=== PATIENT | male | born 1955 | race Caucasian/White ===

== ENCOUNTER 2017-08-04 12:26 | Emergency (ER) | payer MEDICARE, OTHER ==
[2017-08-04 15:33] LABS: ADD MAN DIFF? NO
[2017-08-04 15:34] LABS: HEMATOCRIT 33.6 % (42.0-52.0); HEMOGLOBIN 11.3 g/dl (14.0-18.0); MEAN CORPUSCULAR HEMOGLOBIN 32.6 pg (29.0-33.0); MEAN CORPUSCULAR HGB CONC 33.6 g/dl (32.0-37.0); MEAN CORPUSCULAR VOLUME 96.8 fl (82.0-101.0); PLATELET COUNT 185 10^3/UL (140-415); RED BLOOD COUNT 3.47 10^6/ul (4.70-6.10); RED CELL DISTRIBUTION WIDTH 12.9 % (11.5-14.5)
[2017-08-04 15:34] LABS: WHITE BLOOD COUNT 7.2 10^3/ul (4.8-10.8)
[2017-08-04 15:35] LABS: BASOPHILS % 0.6 % (0.0-2.0); EOSINOPHILS # 0.2 10^3/ul (0.0-0.5); EOSINOPHILS % 2.4 % (0.0-7.0); LYMPHOCYTES # 1.3 10^3/ul (0.8-2.9); LYMPHOCYTES % 18.5 % (15.0-51.0); MEAN PLATELET VOLUME 9.7 fl (7.4-10.4); MONOCYTE # 0.8 10^3/ul (0.3-0.9); MONOCYTES % 10.7 % (0.0-11.0); NEUTROPHIL # 4.8 10^3/ul (1.6-7.5); NEUTROPHILS % 67.2 % (39.0-77.0)
[2017-08-04 16:07] LABS: ALANINE AMINOTRANSFERASE 31 IU/L (13-69); ALBUMIN 4.8 g/dl (3.3-4.9); ALKALINE PHOSPHATASE 118 IU/L (42-121); ANION GAP 25 (8-16); ASPARTATE AMINO TRANSFERASE 32 IU/L (15-46); BILIRUBIN,INDIRECT 0.1 mg/dl (0-1.1); BILIRUBIN,TOTAL 0.1 mg/dl (0.2-1.3); BLOOD UREA NITROGEN 33 mg/dl (7-20); CALCIUM 9.6 mg/dl (8.4-10.2); CARBON DIOXIDE 31 mmol/L (21-31); CHLORIDE 94 mmol/L (97-110); CREATININE 5.92 mg/dl (0.61-1.24); GLUCOSE 117 mg/dl (70-220); LIPASE 64 U/L (23-300); POTASSIUM 5.2 mmol/L (3.5-5.1); SODIUM 145 mmol/L (135-144); TOTAL PROTEIN 8.8 g/dl (6.1-8.1)
== END 2017-08-04 20:18 | disposition home or self-care (01) ==
LOC: E/R 12:26
DX: R53.82 Chronic fatigue, unspecified (principal); E11.9 Type 2 diabetes mellitus without complications; I25.10 Atherosclerotic heart disease of native coronary artery without angina pectoris; N18.6 End stage renal disease; I12.0 Hypertensive chronic kidney disease with stage 5 chronic kidney disease or end stage renal disease; Z95.1 Presence of aortocoronary bypass graft; Z99.2 Dependence on renal dialysis; Z79.84 Long term (current) use of oral hypoglycemic drugs; Z79.82 Long term (current) use of aspirin
CPT/HCPCS: 36415; 71045; 80053; 83690; 85025; 87040; 93005; 99285-25

== ENCOUNTER 2018-01-26 00:32 | Emergency (ER) | payer MEDICARE, OTHER ==
[2018-01-26] MEDS: CIPROFLOXACIN 250 MG TAB PO (04:30)
== END 2018-01-26 05:17 | disposition home or self-care (01) ==
LOC: FTE 05:17
DX: N39.41 Urge incontinence (principal); I12.0 Hypertensive chronic kidney disease with stage 5 chronic kidney disease or end stage renal disease; N18.6 End stage renal disease; E11.22 Type 2 diabetes mellitus with diabetic chronic kidney disease; I25.10 Atherosclerotic heart disease of native coronary artery without angina pectoris; Z79.82 Long term (current) use of aspirin; Z79.84 Long term (current) use of oral hypoglycemic drugs; Z99.2 Dependence on renal dialysis; Z95.1 Presence of aortocoronary bypass graft
CPT/HCPCS: 51702; 99283-25

== ENCOUNTER 2018-02-15 15:34 | Inpatient (IN) | payer MEDICARE, OTHER ==
[2018-02-15] MEDS: LORAZEPAM 0.5 MG TAB PO (17:28)
[2018-02-15 17:42] LABS: ADD MAN DIFF? NO
[2018-02-15 17:43] LABS: WHITE BLOOD COUNT 9.2 10^3/ul (4.8-10.8)
[2018-02-15 17:43] LABS: BASOPHILS % 0.3 % (0.0-2.0); EOSINOPHILS # 0.1 10^3/ul (0.0-0.5); HEMATOCRIT 40.5 % (42.0-52.0); HEMOGLOBIN 13.3 g/dl (14.0-18.0); LYMPHOCYTES # 1.1 10^3/ul (0.8-2.9); LYMPHOCYTES % 11.7 % (15.0-51.0); MEAN CORPUSCULAR HEMOGLOBIN 31.4 pg (29.0-33.0); MEAN CORPUSCULAR HGB CONC 32.8 g/dl (32.0-37.0); MEAN CORPUSCULAR VOLUME 95.5 fl (82.0-101.0); MEAN PLATELET VOLUME 9.9 fl (7.4-10.4); MONOCYTE # 0.9 10^3/ul (0.3-0.9); MONOCYTES % 9.4 % (0.0-11.0); NEUTROPHILS % 76.8 % (39.0-77.0); PLATELET COUNT 186 10^3/UL (140-415); RED BLOOD COUNT 4.24 10^6/ul (4.70-6.10); RED CELL DISTRIBUTION WIDTH 14.7 % (11.5-14.5)
[2018-02-15 18:07] LABS: ALANINE AMINOTRANSFERASE 33 IU/L (13-69); ALBUMIN 4.8 g/dl (3.3-4.9); ALBUMIN/GLOBULIN RATIO 1.17; ALKALINE PHOSPHATASE 142 IU/L (42-121); ANION GAP 20 (8-16); ASPARTATE AMINO TRANSFERASE 24 IU/L (15-46); BILIRUBIN,INDIRECT 0.1 mg/dl (0-1.1); BILIRUBIN,TOTAL 0.1 mg/dl (0.2-1.3); BLOOD UREA NITROGEN 46 mg/dl (7-20); CALCIUM 9.2 mg/dl (8.4-10.2); CARBON DIOXIDE 33 mmol/L (21-31); CHLORIDE 94 mmol/L (97-110); CREATININE 6.99 mg/dl (0.61-1.24); GLUCOSE 242 mg/dl (70-220); LIPASE 105 U/L (23-300); SODIUM 140 mmol/L (135-144); TOTAL PROTEIN 8.9 g/dl (6.1-8.1)
[2018-02-15 18:28] LABS: POTASSIUM 6.5 mmol/L (3.5-5.1); TROPONIN-I 0.161 ng/ml (0.000-0.120)
[2018-02-15] MEDS: SOD CHLORIDE 0.9% 500 ML IV (18:34)
[2018-02-15] MEDS ORDERED: DEXTROSE 50% 50 ML SYRINGE IV (19:00)
[2018-02-15] MEDS: INSULIN REGULAR, HUMAN 100 UNIT/1 ML 3ML VIAL IVP (19:11)
[2018-02-16] MEDS ORDERED: ACETAMINOPHEN 325 MG TAB PO (00:30)
[2018-02-16] MEDS ORDERED: LORAZEPAM 1 MG TAB PO (00:30)
[2018-02-16] MEDS ORDERED: ALBUTEROL/IPRATROPIUM (NEB) 3 ML AMP HHN (00:30)
[2018-02-16] MEDS ORDERED: HYDROCODONE/APAP (5/325) TAB PO (00:30)
[2018-02-16] MEDS ORDERED: NACL 0.9% 3 ML SYG IV (00:30)
[2018-02-16] MEDS ORDERED: NITROGLYCERIN (SL) 0.4 MG TAB SL (00:30)
[2018-02-16] MEDS ORDERED: ONDANSETRON 4 MG INJ IV (00:30)
[2018-02-16] MEDS: HEPARIN 5,000 UNIT/0.5 ML VIAL SC ×3 (01:18→20:55)
[2018-02-16] MEDS: ALPRAZOLAM 0.25 MG TAB PO (01:18)
[2018-02-16] MEDS: NA POLYST SULFON 15 GM/60 ML BTL PO (01:19)
[2018-02-16] MEDS: INSULIN ASPART [NOVOLOG] 3 ML PEN SC ×7 (01:33→21:12)
[2018-02-16] MEDS ORDERED: ACCU-CHEK XX (02:00)
[2018-02-16 02:53] LABS: CREATINE KINASE 43 IU/L (23-200)
[2018-02-16 03:06] LABS: POTASSIUM 5.7 mmol/L (3.5-5.1)
[2018-02-16 03:22] LABS: CK INDEX 2.3
[2018-02-16 03:23] LABS: TROPONIN-I 0.166 ng/ml (0.000-0.120)
[2018-02-16 06:29] LABS: ADD MAN DIFF? NO
[2018-02-16 06:31] LABS: WHITE BLOOD COUNT 6.8 10^3/ul (4.8-10.8)
[2018-02-16 06:31] LABS: BASOPHILS % 0.6 % (0.0-2.0); EOSINOPHILS # 0.1 10^3/ul (0.0-0.5); EOSINOPHILS % 2.1 % (0.0-7.0); HEMATOCRIT 39.4 % (42.0-52.0); HEMOGLOBIN 12.9 g/dl (14.0-18.0); LYMPHOCYTES # 1.3 10^3/ul (0.8-2.9); LYMPHOCYTES % 19.1 % (15.0-51.0); MEAN CORPUSCULAR HEMOGLOBIN 31.8 pg (29.0-33.0); MEAN CORPUSCULAR HGB CONC 32.7 g/dl (32.0-37.0); MEAN PLATELET VOLUME 10.1 fl (7.4-10.4); MONOCYTE # 0.8 10^3/ul (0.3-0.9); MONOCYTES % 11.7 % (0.0-11.0); NEUTROPHIL # 4.5 10^3/ul (1.6-7.5); NEUTROPHILS % 65.5 % (39.0-77.0); PLATELET COUNT 176 10^3/UL (140-415); RED BLOOD COUNT 4.06 10^6/ul (4.70-6.10); RED CELL DISTRIBUTION WIDTH 14.6 % (11.5-14.5)
[2018-02-16 07:02] LABS: ALANINE AMINOTRANSFERASE 32 IU/L (13-69); ALBUMIN 4.3 g/dl (3.3-4.9); ALBUMIN/GLOBULIN RATIO 1.16; ALKALINE PHOSPHATASE 118 IU/L (42-121); ANION GAP 20 (8-16); ASPARTATE AMINO TRANSFERASE 18 IU/L (15-46); BILIRUBIN,INDIRECT 0.1 mg/dl (0-1.1); BILIRUBIN,TOTAL 0.1 mg/dl (0.2-1.3); BLOOD UREA NITROGEN 59 mg/dl (7-20); CALCIUM 8.7 mg/dl (8.4-10.2); CARBON DIOXIDE 31 mmol/L (21-31); CHLORIDE 99 mmol/L (97-110); CHOL/HDL RATIO 3.4 RATIO; CHOLESTEROL 164 mg/dl (100-200); CREATININE 8.27 mg/dl (0.61-1.24); GLUCOSE 97 mg/dl (70-220); HDL CHOLESTEROL 47 mg/dl (30-78); LDL CHOLESTEROL,CALCULATED 87 mg/dl; MAGNESIUM 2.7 mg/dl (1.7-2.5); POTASSIUM 5.6 mmol/L (3.5-5.1); SODIUM 144 mmol/L (135-144); TRIGLYCERIDES 148 mg/dl (0-149)
[2018-02-16 07:26] LABS: THYROID STIMULATING HORMONE 0.689 MIU/L (0.465-4.680)
[2018-02-16] MEDS ORDERED: SEVELAMER 800 MG TAB PO (07:55)
[2018-02-16 08:11] LABS: HEMOGLOBIN A1C 7.8 % (0-5.9)
[2018-02-16] MEDS: INSULIN DETEMIR [LEVEMIR] (100 UNITS/ML) SYG SC (08:20)
[2018-02-16] MEDS: FLUTICASONE 0.05% 16 GM NAS SPRAY NASAL ×2 (08:32→20:35)
[2018-02-16] MEDS: FERROUS SULFATE (EC) 325 MG TAB PO (08:32)
[2018-02-16] MEDS: SEVELAMER CARBONATE 800 MG TABLET PO ×3 (08:32→17:43)
[2018-02-16] MEDS: LOSARTAN 25 MG TAB PO (08:32)
[2018-02-16] MEDS: SERTRALINE 50 MG TAB PO (08:33)
[2018-02-16] MEDS: ASPIRIN (EC) 81 MG TAB PO (08:33)
[2018-02-16] MEDS: MULTIVIT/CA CARB/B CMPLX/FA TAB PO (08:33)
[2018-02-16 09:13] LABS: CREATINE KINASE 43 IU/L (23-200)
[2018-02-16 09:26] LABS: CK INDEX 2.2; CK-MB 0.96 ng/ml (0.0-2.4)
[2018-02-16 09:27] LABS: TROPONIN-I 0.173 ng/ml (0.000-0.120)
[2018-02-16] MEDS ORDERED: GLUCOSE GEL 15 GRAM TUBE PO ×2 (13:00)
[2018-02-16] MEDS ORDERED: GLUCOSE GEL 15 GRAM TUBE BUCCAL (13:00)
[2018-02-16] MEDS ORDERED: DEXTROSE 50% 50 ML SYRINGE IV ×2 (13:00)
[2018-02-16] MEDS ORDERED: GLUCAGON 1 MG INJ IM (13:00)
[2018-02-16 15:25] LABS: HEPATITIS B SURFACE ANTIGEN NEGATIVE (NEGATIVE)
[2018-02-16] MEDS: ATORVASTATIN 10 MG TAB PO (20:35)
[2018-02-16] MEDS: traZODone 50 MG TAB PO (20:35)
[2018-02-17] MEDS: ACCU-CHEK XX (01:43)
[2018-02-17 06:08] LABS: ADD MAN DIFF? NO
[2018-02-17 06:12] LABS: BASOPHILS % 0.4 % (0.0-2.0); EOSINOPHILS # 0.2 10^3/ul (0.0-0.5); EOSINOPHILS % 2.5 % (0.0-7.0); HEMATOCRIT 37.1 % (42.0-52.0); HEMOGLOBIN 11.9 g/dl (14.0-18.0); LYMPHOCYTES # 0.7 10^3/ul (0.8-2.9); LYMPHOCYTES % 9.3 % (15.0-51.0); MEAN CORPUSCULAR HEMOGLOBIN 31.3 pg (29.0-33.0); MEAN CORPUSCULAR HGB CONC 32.1 g/dl (32.0-37.0); MEAN CORPUSCULAR VOLUME 97.6 fl (82.0-101.0); MEAN PLATELET VOLUME 10.2 fl (7.4-10.4); MONOCYTE # 0.9 10^3/ul (0.3-0.9); MONOCYTES % 11.9 % (0.0-11.0); NEUTROPHIL # 5.5 10^3/ul (1.6-7.5); NEUTROPHILS % 75.4 % (39.0-77.0); PLATELET COUNT 153 10^3/UL (140-415); RED CELL DISTRIBUTION WIDTH 14.6 % (11.5-14.5)
[2018-02-17 06:12] LABS: WHITE BLOOD COUNT 7.3 10^3/ul (4.8-10.8)
[2018-02-17 06:51] LABS: ANION GAP 17 (8-16); BLOOD UREA NITROGEN 38 mg/dl (7-20); CALCIUM 8.6 mg/dl (8.4-10.2); CARBON DIOXIDE 29 mmol/L (21-31); CHLORIDE 102 mmol/L (97-110); CREATININE 5.32 mg/dl (0.61-1.24); GLUCOSE 107 mg/dl (70-220); MAGNESIUM 2.3 mg/dl (1.7-2.5); PHOSPHORUS 6.1 mg/dl (2.5-4.9); POTASSIUM 4.8 mmol/L (3.5-5.1); SODIUM 143 mmol/L (135-144)
[2018-02-17] MEDS: INSULIN ASPART [NOVOLOG] 3 ML PEN SC ×2 (07:55→12:02)
[2018-02-17] MEDS: MULTIVIT/CA CARB/B CMPLX/FA TAB PO (08:14)
[2018-02-17] MEDS: SERTRALINE 50 MG TAB PO (08:14)
[2018-02-17] MEDS: ASPIRIN (EC) 81 MG TAB PO (08:14)
[2018-02-17] MEDS: SEVELAMER CARBONATE 800 MG TABLET PO ×2 (08:14→11:46)
[2018-02-17] MEDS: FERROUS SULFATE (EC) 325 MG TAB PO (08:14)
[2018-02-17] MEDS: LOSARTAN 25 MG TAB PO (08:14)
[2018-02-17] MEDS: FLUTICASONE 0.05% 16 GM NAS SPRAY NASAL (08:15)
[2018-02-17] MEDS: HEPARIN 5,000 UNIT/0.5 ML VIAL SC (08:17)
[2018-02-17] MEDS: INSULIN DETEMIR [LEVEMIR] (100 UNITS/ML) SYG SC (12:02)
== END 2018-02-17 12:35 | disposition home or self-care (01) | DRG 640 ==
LOC: TEL 19:38 → FTE 15:34
DX: E87.8 Other disorders of electrolyte and fluid balance, not elsewhere classified (principal); N18.6 End stage renal disease; I12.0 Hypertensive chronic kidney disease with stage 5 chronic kidney disease or end stage renal disease; E11.22 Type 2 diabetes mellitus with diabetic chronic kidney disease; E78.5 Hyperlipidemia, unspecified; I25.10 Atherosclerotic heart disease of native coronary artery without angina pectoris; E87.5 Hyperkalemia; F41.9 Anxiety disorder, unspecified; D64.9 Anemia, unspecified; R74.8 Abnormal levels of other serum enzymes; R94.31 Abnormal electrocardiogram [ECG] [EKG]; Z87.891 Personal history of nicotine dependence; Z99.2 Dependence on renal dialysis; Z76.82 Awaiting organ transplant status; Z79.84 Long term (current) use of oral hypoglycemic drugs; Z79.82 Long term (current) use of aspirin; Z95.1 Presence of aortocoronary bypass graft
CPT/HCPCS: 36415; 70450; 80048; 80053; 80061; 82550; 82553; 82962; 83036; 83690; 83735; 84100; 84132; 84443; 84484; 85025; 87340; 90935; 93005; 93306; 96374; 99285-25

== ENCOUNTER 2018-04-27 20:46 | Emergency (ER) | payer MEDICARE, OTHER ==
[2018-04-27] MEDS: SOD CHLORIDE 0.9% 1,000 ML IV (22:03)
[2018-04-27 22:27] LABS: ADD MAN DIFF? NO
[2018-04-27 22:29] LABS: BASOPHIL # 0.1 10^3/ul (0.0-0.1); BASOPHILS % 0.5 % (0.0-2.0); EOSINOPHILS # 0.2 10^3/ul (0.0-0.5); EOSINOPHILS % 1.7 % (0.0-7.0); HEMATOCRIT 40.2 % (42.0-52.0); HEMOGLOBIN 13.2 g/dl (14.0-18.0); LYMPHOCYTES # 1.3 10^3/ul (0.8-2.9); LYMPHOCYTES % 13.2 % (15.0-51.0); MEAN CORPUSCULAR HEMOGLOBIN 30.8 pg (29.0-33.0); MEAN CORPUSCULAR HGB CONC 32.8 g/dl (32.0-37.0); MEAN CORPUSCULAR VOLUME 93.9 fl (82.0-101.0); MONOCYTE # 0.8 10^3/ul (0.3-0.9); MONOCYTES % 7.5 % (0.0-11.0); NEUTROPHIL # 7.8 10^3/ul (1.6-7.5); NEUTROPHILS % 76.7 % (39.0-77.0); PLATELET COUNT 185 10^3/UL (140-415); RED BLOOD COUNT 4.28 10^6/ul (4.70-6.10); RED CELL DISTRIBUTION WIDTH 13.5 % (11.5-14.5)
[2018-04-27 22:29] LABS: WHITE BLOOD COUNT 10.2 10^3/ul (4.8-10.8)
[2018-04-27] MEDS: morphine 4 MG/ML VIAL IV (22:34)
[2018-04-27] MEDS: ONDANSETRON 4 MG INJ IV (22:38)
[2018-04-27] MEDS: KETOROLAC 15 MG INJ IV (22:38)
[2018-04-27 22:46] LABS: ALANINE AMINOTRANSFERASE 53 IU/L (13-69); ALBUMIN 4.4 g/dl (3.3-4.9); ALBUMIN/GLOBULIN RATIO 1.02; ALKALINE PHOSPHATASE 120 IU/L (42-121); ANION GAP 22 (8-16); ASPARTATE AMINO TRANSFERASE 36 IU/L (15-46); BILIRUBIN,INDIRECT 0.2 mg/dl (0-1.1); BILIRUBIN,TOTAL 0.2 mg/dl (0.2-1.3); BLOOD UREA NITROGEN 37 mg/dl (7-20); CALCIUM 8.9 mg/dl (8.4-10.2); CARBON DIOXIDE 30 mmol/L (21-31); CHLORIDE 91 mmol/L (97-110); CREATININE 7.03 mg/dl (0.61-1.24); GLUCOSE 233 mg/dl (70-220); LIPASE 115 U/L (23-300); POTASSIUM 4.8 mmol/L (3.5-5.1); SODIUM 138 mmol/L (135-144); TOTAL PROTEIN 8.7 g/dl (6.1-8.1)
== END 2018-04-28 02:48 | disposition home or self-care (01) ==
LOC: E/R 04-28 02:48
DX: N39.0 Urinary tract infection, site not specified (principal); E11.65 Type 2 diabetes mellitus with hyperglycemia; I25.10 Atherosclerotic heart disease of native coronary artery without angina pectoris; E11.9 Type 2 diabetes mellitus without complications; Z79.82 Long term (current) use of aspirin; Z79.84 Long term (current) use of oral hypoglycemic drugs; Z95.1 Presence of aortocoronary bypass graft
CPT/HCPCS: 36415; 76775; 80053; 83690; 85025; 96374; 96375; 99285-25

== ENCOUNTER 2018-05-09 07:27 | Emergency (ER) | payer OTHER, MEDICARE | END 2018-05-09 08:44 | disposition home or self-care (01) | LOC: E/R 07:27 | DX: T82.838A Hemorrhage due to vascular prosthetic devices, implants and grafts, initial encounter (principal); I25.10 Atherosclerotic heart disease of native coronary artery without angina pectoris; E11.9 Type 2 diabetes mellitus without complications; Y79.2 Prosthetic and other implants, materials and accessory orthopedic devices associated with adverse incidents; Z79.82 Long term (current) use of aspirin; Z79.84 Long term (current) use of oral hypoglycemic drugs; Z95.1 Presence of aortocoronary bypass graft | CPT/HCPCS: 99282 ==

== ENCOUNTER 2018-05-19 17:17 | Emergency (ER) | payer OTHER ==
[2018-05-19 18:27] LABS: ADD MAN DIFF? NO
[2018-05-19 18:35] LABS: BASOPHILS % 0.6 % (0.0-2.0); EOSINOPHILS # 0.2 10^3/ul (0.0-0.5); HEMATOCRIT 36.7 % (42.0-52.0); HEMOGLOBIN 12.1 g/dl (14.0-18.0); LYMPHOCYTES # 1.4 10^3/ul (0.8-2.9); LYMPHOCYTES % 20.7 % (15.0-51.0); MEAN CORPUSCULAR HEMOGLOBIN 31.5 pg (29.0-33.0); MEAN CORPUSCULAR VOLUME 95.6 fl (82.0-101.0); MEAN PLATELET VOLUME 10.1 fl (7.4-10.4); MONOCYTE # 0.9 10^3/ul (0.3-0.9); MONOCYTES % 12.9 % (0.0-11.0); NEUTROPHIL # 4.1 10^3/ul (1.6-7.5); NEUTROPHILS % 62.3 % (39.0-77.0); PLATELET COUNT 150 10^3/UL (140-415); RED BLOOD COUNT 3.84 10^6/ul (4.70-6.10); RED CELL DISTRIBUTION WIDTH 15.1 % (11.5-14.5)
[2018-05-19 18:35] LABS: WHITE BLOOD COUNT 6.6 10^3/ul (4.8-10.8)
[2018-05-19] MEDS: HYDROCODONE/APAP (5/325) TAB PO (18:37)
[2018-05-19 18:55] LABS: ANION GAP 17 (5-13); BLOOD UREA NITROGEN 65 mg/dl (7-20); CALCIUM 8.1 mg/dl (8.4-10.2); CARBON DIOXIDE 27 mmol/L (21-31); CHLORIDE 93 mmol/L (97-110); CREATININE 9.14 mg/dl (0.61-1.24); GLUCOSE 178 mg/dl (70-220); POTASSIUM 5.8 mmol/L (3.5-5.1); SODIUM 137 mmol/L (135-144)
== END 2018-05-19 20:25 | disposition home or self-care (01) ==
LOC: E/R 17:17
DX: T81.41XA Infection following a procedure, superficial incisional surgical site, initial encounter (principal); R40.2142 Coma scale, eyes open, spontaneous, at arrival to emergency department; R40.2362 Coma scale, best motor response, obeys commands, at arrival to emergency department; R40.2252 Coma scale, best verbal response, oriented, at arrival to emergency department; I25.10 Atherosclerotic heart disease of native coronary artery without angina pectoris; I10 Essential (primary) hypertension; Y65.8 Other specified misadventures during surgical and medical care; Z95.1 Presence of aortocoronary bypass graft; Z87.891 Personal history of nicotine dependence; Z79.82 Long term (current) use of aspirin; Z79.84 Long term (current) use of oral hypoglycemic drugs
CPT/HCPCS: 36415; 80048; 85025; 93931; 99284-25

== ENCOUNTER 2018-07-28 07:09 | Inpatient (IN) | payer OTHER ==
[2018-07-28 07:47] LABS: ADD MAN DIFF? NO
[2018-07-28 07:49] LABS: BASOPHILS % 0.5 % (0.0-2.0); EOSINOPHILS # 0.2 10^3/ul (0.0-0.5); EOSINOPHILS % 2.1 % (0.0-7.0); HEMATOCRIT 40.8 % (42.0-52.0); HEMOGLOBIN 13.1 g/dl (14.0-18.0); LYMPHOCYTES # 1.3 10^3/ul (0.8-2.9); LYMPHOCYTES % 15.6 % (15.0-51.0); MEAN CORPUSCULAR HEMOGLOBIN 30.9 pg (29.0-33.0); MEAN CORPUSCULAR HGB CONC 32.1 g/dl (32.0-37.0); MEAN CORPUSCULAR VOLUME 96.2 fl (82.0-101.0); MEAN PLATELET VOLUME 9.7 fl (7.4-10.4); MONOCYTE # 0.7 10^3/ul (0.3-0.9); MONOCYTES % 8.9 % (0.0-11.0); NEUTROPHILS % 72.4 % (39.0-77.0); PLATELET COUNT 146 10^3/UL (140-415); RED BLOOD COUNT 4.24 10^6/ul (4.70-6.10); RED CELL DISTRIBUTION WIDTH 14.2 % (11.5-14.5)
[2018-07-28 07:49] LABS: WHITE BLOOD COUNT 8.2 10^3/ul (4.8-10.8)
[2018-07-28 08:05] LABS: ALANINE AMINOTRANSFERASE 27 IU/L (13-69); ALBUMIN 4.5 g/dl (3.3-4.9); ALBUMIN/GLOBULIN RATIO 1.09; ALKALINE PHOSPHATASE 164 IU/L (42-121); ANION GAP 14 (5-13); ASPARTATE AMINO TRANSFERASE 19 IU/L (15-46); BLOOD UREA NITROGEN 41 mg/dl (7-20); CALCIUM 8.5 mg/dl (8.4-10.2); CARBON DIOXIDE 32 mmol/L (21-31); CHLORIDE 95 mmol/L (97-110); CREATININE 8.27 mg/dl (0.61-1.24); Estimated GFR 7 mL/min (>60); GLUCOSE 222 mg/dl (70-220); LIPASE 100 U/L (23-300); SODIUM 141 mmol/L (135-144); TOTAL PROTEIN 8.6 g/dl (6.1-8.1)
[2018-07-28 08:08] LABS: PROTIME 13.3 Sec (11.9-14.9)
[2018-07-28 08:09] LABS: PARTIAL THROMBOPLASTIN TIME 30.1 Sec (23.0-35.0)
[2018-07-28 08:15] LABS: POTASSIUM 6.5 mmol/L (3.5-5.1)
[2018-07-28 08:17] LABS: TROPONIN-I 0.028 ng/ml (0.000-0.120)
[2018-07-28] MEDS: NA POLYST SULFON 15 GM/60 ML BTL PO (08:24)
[2018-07-28] MEDS ORDERED: ONDANSETRON 4 MG INJ IV ×2 (08:30→10:00)
[2018-07-28] MEDS ORDERED: ACETAMINOPHEN 325 MG TAB PO (08:30)
[2018-07-28] MEDS: CALCIUM GLUCONATE 10% 1 GM in DEXTROSE 5% 100 ML IVPB (08:53)
[2018-07-28] MEDS ORDERED: NACL 0.9% 3 ML SYG IV (10:00)
[2018-07-28] MEDS ORDERED: ALPRAZOLAM 0.25 MG TAB PO (10:00)
[2018-07-28] MEDS ORDERED: GLUCOSE GEL 15 GRAM TUBE PO ×2 (10:30)
[2018-07-28] MEDS ORDERED: GLUCAGON 1 MG INJ IM (10:30)
[2018-07-28] MEDS ORDERED: DEXTROSE 50% 50 ML SYRINGE IV ×2 (10:30)
[2018-07-28] MEDS ORDERED: GLUCOSE GEL 15 GRAM TUBE BUCCAL (10:30)
[2018-07-28 11:09] LABS: HEMOGLOBIN A1C 7.3 % (0-5.9)
[2018-07-28] MEDS: SEVELAMER 800 MG TAB PO (11:50)
[2018-07-28] MEDS: INSULIN ASPART [NOVOLOG] 3 ML PEN SC ×5 (11:50→22:07)
[2018-07-28] MEDS ORDERED: hydrALAzine 20 MG INJ IV (12:00)
[2018-07-28 13:37] LABS: HEPATITIS B SURFACE ANTIGEN NEGATIVE (NEGATIVE)
[2018-07-28 14:35] LABS: HEPATITIS B SURFACE ANTIBODY POSITIVE (NEGATIVE)
[2018-07-28 14:49] LABS: CREATINE KINASE 52 IU/L (23-200)
[2018-07-28 15:03] LABS: CK INDEX 1.7; CK-MB 0.87 ng/ml (0.0-2.4); TROPONIN-I 0.026 ng/ml (0.000-0.120)
[2018-07-28] MEDS: HEPARIN 5,000 UNIT/1 ML VIAL SC ×2 (16:18→22:06)
[2018-07-28] MEDS: SEVELAMER CARBONATE 800 MG TABLET PO (17:24)
[2018-07-28] MEDS: LORAZEPAM 4 MG/ML VIAL IV (17:26)
[2018-07-28] MEDS: FLUTICASONE 0.05% 16 GM NAS SPRAY NASAL (21:00)
[2018-07-28] MEDS: traZODone 50 MG TAB PO (21:43)
[2018-07-28] MEDS: ATORVASTATIN 10 MG TAB PO (21:43)
[2018-07-28] MEDS: INSULIN GLARGINE [LANTus] (100 UNITS/ML) SYG SC (21:56)
[2018-07-29] MEDS: HEPARIN 5,000 UNIT/1 ML VIAL SC ×3 (05:41→21:23)
[2018-07-29 06:38] LABS: ADD MAN DIFF? NO
[2018-07-29 06:40] LABS: BASOPHIL # 0.1 10^3/ul (0.0-0.1); BASOPHILS % 0.9 % (0.0-2.0); EOSINOPHILS # 0.2 10^3/ul (0.0-0.5); EOSINOPHILS % 2.7 % (0.0-7.0); HEMATOCRIT 37.3 % (42.0-52.0); LYMPHOCYTES # 1.5 10^3/ul (0.8-2.9); LYMPHOCYTES % 21.7 % (15.0-51.0); MEAN CORPUSCULAR HEMOGLOBIN 30.8 pg (29.0-33.0); MEAN CORPUSCULAR HGB CONC 32.2 g/dl (32.0-37.0); MEAN CORPUSCULAR VOLUME 95.9 fl (82.0-101.0); MEAN PLATELET VOLUME 10.2 fl (7.4-10.4); MONOCYTE # 0.9 10^3/ul (0.3-0.9); MONOCYTES % 13.6 % (0.0-11.0); NEUTROPHIL # 4.1 10^3/ul (1.6-7.5); NEUTROPHILS % 60.7 % (39.0-77.0); PLATELET COUNT 149 10^3/UL (140-415); RED BLOOD COUNT 3.89 10^6/ul (4.70-6.10); RED CELL DISTRIBUTION WIDTH 14.6 % (11.5-14.5)
[2018-07-29 06:40] LABS: WHITE BLOOD COUNT 6.7 10^3/ul (4.8-10.8)
[2018-07-29 07:12] LABS: ALANINE AMINOTRANSFERASE 34 IU/L (13-69); ALBUMIN 4.1 g/dl (3.3-4.9); ALBUMIN/GLOBULIN RATIO 1.24; ALKALINE PHOSPHATASE 140 IU/L (42-121); ANION GAP 16 (5-13); ASPARTATE AMINO TRANSFERASE 27 IU/L (15-46); BILIRUBIN,INDIRECT 0.1 mg/dl (0-1.1); BILIRUBIN,TOTAL 0.1 mg/dl (0.2-1.3); BLOOD UREA NITROGEN 40 mg/dl (7-20); CALCIUM 8.2 mg/dl (8.4-10.2); CARBON DIOXIDE 35 mmol/L (21-31); CHLORIDE 91 mmol/L (97-110); CREATININE 8.17 mg/dl (0.61-1.24); Estimated GFR 7 mL/min (>60); GLUCOSE 82 mg/dl (70-220); POTASSIUM 5.7 mmol/L (3.5-5.1); SODIUM 142 mmol/L (135-144); TOTAL PROTEIN 7.4 g/dl (6.1-8.1)
[2018-07-29 07:26] LABS: CHOL/HDL RATIO 2.8 RATIO; CHOLESTEROL 135 mg/dl (100-200); HDL CHOLESTEROL 48 mg/dl (30-78); LDL CHOLESTEROL,CALCULATED 64 mg/dl; MAGNESIUM 2.5 mg/dl (1.7-2.5); TRIGLYCERIDES 114 mg/dl (0-149)
[2018-07-29 07:26] LABS: PHOSPHORUS 6.6 mg/dl (2.5-4.9)
[2018-07-29] MEDS: INSULIN ASPART [NOVOLOG] 3 ML PEN SC ×7 (07:55→21:00)
[2018-07-29 08:01] LABS: TROPONIN-I 0.047 ng/ml (0.000-0.120)
[2018-07-29] MEDS: MULTIVIT/CA CARB/B CMPLX/FA TAB PO (08:18)
[2018-07-29] MEDS: ASPIRIN (EC) 81 MG TAB PO (08:18)
[2018-07-29] MEDS: SEVELAMER CARBONATE 800 MG TABLET PO ×3 (08:18→14:14)
[2018-07-29] MEDS: SERTRALINE 50 MG TAB PO (08:18)
[2018-07-29] MEDS: FERROUS SULFATE (EC) 325 MG TAB PO (08:18)
[2018-07-29] MEDS: FLUTICASONE 0.05% 16 GM NAS SPRAY NASAL ×2 (08:19→21:10)
[2018-07-29 08:20] LABS: THYROID STIMULATING HORMONE 0.789 MIU/L (0.465-4.680)
[2018-07-29] MEDS: LOSARTAN 25 MG TAB PO (08:20)
[2018-07-29] MEDS: ALBUMIN HUMAN 25% 100 ML IV (10:50)
[2018-07-29] MEDS: HEPARIN 1000 UNITS/ML 10 ML INJ CATHETER (12:29)
[2018-07-29] MEDS ORDERED: BARIUM SULF 2% 450 ML BTL (BERRY SMOOTHIE) PO (12:30)
[2018-07-29 13:30] LABS: TROPONIN-I 0.039 ng/ml (0.000-0.120)
[2018-07-29] MEDS: PANTOPRAZOLE (EC) 40 MG TAB PO (14:14)
[2018-07-29] MEDS: IOHEXOL 14.3 MG(I)/ML (ADULT) BTL PO (17:36)
[2018-07-29] MEDS: traZODone 50 MG TAB PO (21:10)
[2018-07-29] MEDS: ATORVASTATIN 10 MG TAB PO (21:10)
[2018-07-29] MEDS: INSULIN GLARGINE [LANTus] (100 UNITS/ML) SYG SC (21:23)
[2018-07-30] MEDS: PANTOPRAZOLE (EC) 40 MG TAB PO (05:44)
[2018-07-30] MEDS: HEPARIN 5,000 UNIT/1 ML VIAL SC ×3 (05:48→21:26)
[2018-07-30 06:01] LABS: ADD MAN DIFF? NO
[2018-07-30 06:05] LABS: BASOPHIL # 0.1 10^3/ul (0.0-0.1); BASOPHILS % 0.7 % (0.0-2.0); EOSINOPHILS # 0.2 10^3/ul (0.0-0.5); HEMATOCRIT 37.2 % (42.0-52.0); HEMOGLOBIN 12.2 g/dl (14.0-18.0); LYMPHOCYTES # 1.6 10^3/ul (0.8-2.9); LYMPHOCYTES % 22.3 % (15.0-51.0); MEAN CORPUSCULAR HGB CONC 32.8 g/dl (32.0-37.0); MEAN CORPUSCULAR VOLUME 94.4 fl (82.0-101.0); MEAN PLATELET VOLUME 9.9 fl (7.4-10.4); MONOCYTE # 0.8 10^3/ul (0.3-0.9); MONOCYTES % 10.6 % (0.0-11.0); NEUTROPHIL # 4.6 10^3/ul (1.6-7.5); NEUTROPHILS % 62.7 % (39.0-77.0); PLATELET COUNT 160 10^3/UL (140-415); RED BLOOD COUNT 3.94 10^6/ul (4.70-6.10)
[2018-07-30 06:05] LABS: WHITE BLOOD COUNT 7.4 10^3/ul (4.8-10.8)
[2018-07-30 06:41] LABS: ANION GAP 17 (5-13); BLOOD UREA NITROGEN 38 mg/dl (7-20); CALCIUM 8.4 mg/dl (8.4-10.2); CARBON DIOXIDE 27 mmol/L (21-31); CHLORIDE 92 mmol/L (97-110); CREATININE 6.48 mg/dl (0.61-1.24); Estimated GFR 9 mL/min (>60); GLUCOSE 131 mg/dl (70-220); MAGNESIUM 2.3 mg/dl (1.7-2.5); PHOSPHORUS 5.7 mg/dl (2.5-4.9); POTASSIUM 5.4 mmol/L (3.5-5.1); SODIUM 136 mmol/L (135-144)
[2018-07-30] MEDS: INSULIN ASPART [NOVOLOG] 3 ML PEN SC ×7 (07:55→21:00)
[2018-07-30] MEDS: ASPIRIN (EC) 81 MG TAB PO (08:51)
[2018-07-30] MEDS: FERROUS SULFATE (EC) 325 MG TAB PO (08:51)
[2018-07-30] MEDS: MULTIVIT/CA CARB/B CMPLX/FA TAB PO (08:51)
[2018-07-30] MEDS: SEVELAMER CARBONATE 800 MG TABLET PO ×3 (08:51→17:19)
[2018-07-30] MEDS: SERTRALINE 50 MG TAB PO (08:51)
[2018-07-30] MEDS: FLUTICASONE 0.05% 16 GM NAS SPRAY NASAL ×2 (08:53→21:19)
[2018-07-30] MEDS: LOSARTAN 25 MG TAB PO (08:53)
[2018-07-30] MEDS ORDERED: ALBUMIN HUMAN 25% 100 ML IV (10:05)
[2018-07-30 13:30] LABS: CARCINOEMBRYONIC ANTIGEN 2.3 ng/ml (0.0-5.0)
[2018-07-30 13:47] LABS: HEPATITIS C VIRAL ANTIBODY REACTIVE (NEGATIVE)
[2018-07-30 13:47] LABS: CANCER ANTIGEN 19-9 < 1.4 U/ml (0.0-37.0)
[2018-07-30] MEDS: HEPARIN 1000 UNITS/ML 10 ML INJ CATHETER (15:30)
[2018-07-30] MEDS: ACETAMINOPHEN 325 MG TAB PO (17:26)
[2018-07-30] MEDS: ATORVASTATIN 10 MG TAB PO (21:17)
[2018-07-30] MEDS: traZODone 50 MG TAB PO (21:18)
[2018-07-30] MEDS: INSULIN GLARGINE [LANTus] (100 UNITS/ML) SYG SC (21:27)
[2018-07-31 05:54] LABS: OCCULT BLOOD STOOL POSITIVE (NEGATIVE)
[2018-07-31] MEDS: PANTOPRAZOLE (EC) 40 MG TAB PO (06:00)
[2018-07-31] MEDS: HEPARIN 5,000 UNIT/1 ML VIAL SC ×3 (06:04→21:48)
[2018-07-31] MEDS: INSULIN ASPART [NOVOLOG] 3 ML PEN SC ×7 (07:55→20:55)
[2018-07-31] MEDS: ASPIRIN (EC) 81 MG TAB PO (08:21)
[2018-07-31] MEDS: SEVELAMER CARBONATE 800 MG TABLET PO ×3 (08:21→17:29)
[2018-07-31] MEDS: FERROUS SULFATE (EC) 325 MG TAB PO (08:21)
[2018-07-31] MEDS: MULTIVIT/CA CARB/B CMPLX/FA TAB PO (08:21)
[2018-07-31] MEDS: SERTRALINE 50 MG TAB PO (08:22)
[2018-07-31] MEDS: LOSARTAN 25 MG TAB PO (08:22)
[2018-07-31] MEDS: FLUTICASONE 0.05% 16 GM NAS SPRAY NASAL ×2 (08:23→20:54)
[2018-07-31 12:11] LABS: MITOCHONDRIAL TB NEGATIVE (NEGATIVE); SMOOTH MUSCLE AB SCREEN POSITIVE (NEGATIVE)
[2018-07-31 12:56] LABS: ANA SCREEN NEGATIVE (NEGATIVE); SMOOTH MUSCLE AB TITER 1:20 titer (<1:20)
[2018-07-31 13:42] LABS: PROSTATE SPECIFIC ANTIGEN 0.1 ng/ml (0.0-4.0)
[2018-07-31 19:46] LABS: PSA, FREE <0.1 ng/mL
[2018-07-31] MEDS: ATORVASTATIN 10 MG TAB PO (20:54)
[2018-07-31] MEDS: traZODone 50 MG TAB PO (20:55)
[2018-07-31] MEDS: INSULIN GLARGINE [LANTus] (100 UNITS/ML) SYG SC (21:18)
[2018-08-01] MEDS: HEPARIN 5,000 UNIT/1 ML VIAL SC ×2 (05:17→13:46)
[2018-08-01] MEDS: PANTOPRAZOLE (EC) 40 MG TAB PO (05:17)
[2018-08-01] MEDS: INSULIN ASPART [NOVOLOG] 3 ML PEN SC ×6 (07:59→17:31)
[2018-08-01] MEDS: SEVELAMER CARBONATE 800 MG TABLET PO ×3 (08:11→17:29)
[2018-08-01] MEDS: SERTRALINE 50 MG TAB PO (08:11)
[2018-08-01] MEDS: FERROUS SULFATE (EC) 325 MG TAB PO (08:11)
[2018-08-01] MEDS: MULTIVIT/CA CARB/B CMPLX/FA TAB PO (08:11)
[2018-08-01] MEDS: ASPIRIN (EC) 81 MG TAB PO (08:11)
[2018-08-01] MEDS: FLUTICASONE 0.05% 16 GM NAS SPRAY NASAL (08:12)
[2018-08-01] MEDS: LOSARTAN 25 MG TAB PO (09:00)
[2018-08-01] MEDS: HEPARIN 1000 UNITS/ML 10 ML INJ CATHETER (17:24)
== END 2018-08-01 18:59 | disposition home or self-care (01) | DRG 640 ==
LOC: E/R 07:09 → PP2 07-31 21:09 → TEL 08:25
PROC: 5A1D70Z Performance of Urinary Filtration, Intermittent, Less than 6 Hours Per Day (ICD-10-PCS; principal; 2018-07-28)
DX: E87.5 Hyperkalemia (principal); N18.6 End stage renal disease; I12.0 Hypertensive chronic kidney disease with stage 5 chronic kidney disease or end stage renal disease; Z99.2 Dependence on renal dialysis; I16.0 Hypertensive urgency; Z95.1 Presence of aortocoronary bypass graft; R14.0 Abdominal distension (gaseous); Z86.73 Personal history of transient ischemic attack (TIA), and cerebral infarction without residual deficits; E11.9 Type 2 diabetes mellitus without complications; Z87.891 Personal history of nicotine dependence; D49.511 Neoplasm of unspecified behavior of right kidney; Z76.82 Awaiting organ transplant status
CPT/HCPCS: 36415; 71045; 74018; 74176; 76705; 80048; 80053; 80061; 82105; 82270; 82378; 82550; 82553; 82962; 83036; 83690; 83735; 84100; 84153; 84154; 84443; 84484; 85025; 85610; 85730; 86038; 86255; 86301; 86706; 86803; 87340; 87522; 90935; 93005; 93306; 99285-25

== ENCOUNTER 2018-09-09 21:33 | Emergency (ER) | payer OTHER ==
[2018-09-10] MEDS: HYDROCODONE/APAP (5/325) TAB PO (01:44)
[2018-09-10 01:59] LABS: ADD MAN DIFF? NO
[2018-09-10 02:00] LABS: BASOPHIL # 0.1 10^3/ul (0.0-0.1); BASOPHILS % 0.7 % (0.0-2.0); EOSINOPHILS # 0.2 10^3/ul (0.0-0.5); EOSINOPHILS % 2.5 % (0.0-7.0); HEMATOCRIT 34.3 % (42.0-52.0); HEMOGLOBIN 11.2 g/dl (14.0-18.0); LYMPHOCYTES # 1.5 10^3/ul (0.8-2.9); LYMPHOCYTES % 20.2 % (15.0-51.0); MEAN CORPUSCULAR HEMOGLOBIN 30.6 pg (29.0-33.0); MEAN CORPUSCULAR HGB CONC 32.7 g/dl (32.0-37.0); MEAN CORPUSCULAR VOLUME 93.7 fl (82.0-101.0); MEAN PLATELET VOLUME 9.5 fl (7.4-10.4); MONOCYTE # 0.8 10^3/ul (0.3-0.9); MONOCYTES % 10.4 % (0.0-11.0); NEUTROPHIL # 4.9 10^3/ul (1.6-7.5); NEUTROPHILS % 65.4 % (39.0-77.0); PLATELET COUNT 168 10^3/UL (140-415); RED BLOOD COUNT 3.66 10^6/ul (4.70-6.10); RED CELL DISTRIBUTION WIDTH 14.2 % (11.5-14.5)
[2018-09-10 02:00] LABS: WHITE BLOOD COUNT 7.5 10^3/ul (4.8-10.8)
[2018-09-10 02:19] LABS: ALANINE AMINOTRANSFERASE 16 IU/L (13-69); ALBUMIN 4.6 g/dl (3.3-4.9); ALBUMIN/GLOBULIN RATIO 1.12; ALKALINE PHOSPHATASE 150 IU/L (42-121); ANION GAP 14 (5-13); ASPARTATE AMINO TRANSFERASE 17 IU/L (15-46); BLOOD UREA NITROGEN 59 mg/dl (7-20); CALCIUM 8.7 mg/dl (8.4-10.2); CARBON DIOXIDE 28 mmol/L (21-31); CHLORIDE 98 mmol/L (97-110); CREATININE 9.35 mg/dl (0.61-1.24); Estimated GFR 6 mL/min (>60); GLUCOSE 286 mg/dl (70-220); POTASSIUM 5.2 mmol/L (3.5-5.1); SODIUM 140 mmol/L (135-144); TOTAL PROTEIN 8.7 g/dl (6.1-8.1)
== END 2018-09-10 02:57 | disposition home or self-care (01) ==
LOC: FTE 21:33
DX: K62.89 Other specified diseases of anus and rectum (principal); I10 Essential (primary) hypertension; Z79.82 Long term (current) use of aspirin; Z79.84 Long term (current) use of oral hypoglycemic drugs; Z99.2 Dependence on renal dialysis
CPT/HCPCS: 80053; 85025; 99284

== ENCOUNTER 2018-09-22 16:42 | Inpatient (IN) | payer OTHER ==
[2018-09-22 18:42] LABS: ADD MAN DIFF? NO
[2018-09-22 18:43] LABS: WHITE BLOOD COUNT 6.9 10^3/ul (4.8-10.8)
[2018-09-22 18:43] LABS: BASOPHILS % 0.4 % (0.0-2.0); EOSINOPHILS # 0.2 10^3/ul (0.0-0.5); EOSINOPHILS % 2.3 % (0.0-7.0); HEMATOCRIT 29.2 % (42.0-52.0); HEMOGLOBIN 9.6 g/dl (14.0-18.0); LYMPHOCYTES # 0.9 10^3/ul (0.8-2.9); LYMPHOCYTES % 13.3 % (15.0-51.0); MEAN CORPUSCULAR HEMOGLOBIN 30.4 pg (29.0-33.0); MEAN CORPUSCULAR HGB CONC 32.9 g/dl (32.0-37.0); MEAN CORPUSCULAR VOLUME 92.4 fl (82.0-101.0); MEAN PLATELET VOLUME 9.6 fl (7.4-10.4); MONOCYTE # 0.9 10^3/ul (0.3-0.9); MONOCYTES % 12.7 % (0.0-11.0); NEUTROPHIL # 4.8 10^3/ul (1.6-7.5); NEUTROPHILS % 70.7 % (39.0-77.0); PLATELET COUNT 196 10^3/UL (140-415); RED BLOOD COUNT 3.16 10^6/ul (4.70-6.10); RED CELL DISTRIBUTION WIDTH 14.7 % (11.5-14.5)
[2018-09-22 19:01] LABS: ALANINE AMINOTRANSFERASE 44 IU/L (13-69); ALBUMIN 4.5 g/dl (3.3-4.9); ALBUMIN/GLOBULIN RATIO 1.15; ALKALINE PHOSPHATASE 176 IU/L (42-121); ANION GAP 19 (5-13); ASPARTATE AMINO TRANSFERASE 25 IU/L (15-46); BLOOD UREA NITROGEN 97 mg/dl (7-20); CALCIUM 9.1 mg/dl (8.4-10.2); CARBON DIOXIDE 22 mmol/L (21-31); CHLORIDE 102 mmol/L (97-110); CREATININE 11.89 mg/dl (0.61-1.24); Estimated GFR 4 mL/min (>60); GLUCOSE 178 mg/dl (70-220); LIPASE 95 U/L (23-300); SODIUM 143 mmol/L (135-144); TOTAL PROTEIN 8.4 g/dl (6.1-8.1)
[2018-09-22 19:13] LABS: POTASSIUM 6.4 mmol/L (3.5-5.1); TROPONIN-I 0.035 ng/ml (0.000-0.120)
[2018-09-22] MEDS ORDERED: DEXTROSE 50% 50 ML SYRINGE IV (19:30)
[2018-09-22] MEDS: ALBUTEROL 0.083% (NEB) 2.5 MG/3 ML AMP HHN (19:35)
[2018-09-22] MEDS: INSULIN REGULAR, HUMAN 100 UNIT/1 ML 3ML VIAL IVP (19:43)
[2018-09-22] MEDS: DEXTROSE 50% 50 ML SYRINGE IV (19:45)
[2018-09-22] MEDS ORDERED: BISACODYL (EC) 5 MG TAB PO (21:30)
[2018-09-22] MEDS ORDERED: DOCUSATE SODIUM 100 MG CAP PO (21:30)
[2018-09-22] MEDS ORDERED: NACL 0.9% 3 ML SYG IV (21:30)
[2018-09-22] MEDS ORDERED: ONDANSETRON 4 MG TAB PO (21:30)
[2018-09-22] MEDS: LORAZEPAM 2 MG INJ IV (22:51)
[2018-09-23] MEDS ORDERED: hydrALAzine 20 MG INJ IV (02:30)
[2018-09-23 06:09] LABS: ADD MAN DIFF? NO
[2018-09-23 06:12] LABS: BASOPHILS % 0.4 % (0.0-2.0); EOSINOPHILS # 0.1 10^3/ul (0.0-0.5); EOSINOPHILS % 1.3 % (0.0-7.0); HEMATOCRIT 27.4 % (42.0-52.0); LYMPHOCYTES # 1.2 10^3/ul (0.8-2.9); LYMPHOCYTES % 15.9 % (15.0-51.0); MEAN CORPUSCULAR HEMOGLOBIN 30.7 pg (29.0-33.0); MEAN CORPUSCULAR HGB CONC 32.8 g/dl (32.0-37.0); MEAN CORPUSCULAR VOLUME 93.5 fl (82.0-101.0); MEAN PLATELET VOLUME 9.8 fl (7.4-10.4); MONOCYTE # 0.8 10^3/ul (0.3-0.9); NEUTROPHIL # 5.5 10^3/ul (1.6-7.5); PLATELET COUNT 183 10^3/UL (140-415); RED BLOOD COUNT 2.93 10^6/ul (4.70-6.10); RED CELL DISTRIBUTION WIDTH 15.1 % (11.5-14.5)
[2018-09-23 06:12] LABS: WHITE BLOOD COUNT 7.6 10^3/ul (4.8-10.8)
[2018-09-23 06:44] LABS: ALANINE AMINOTRANSFERASE 37 IU/L (13-69); ALBUMIN 4.2 g/dl (3.3-4.9); ALKALINE PHOSPHATASE 162 IU/L (42-121); ANION GAP 21 (5-13); ASPARTATE AMINO TRANSFERASE 15 IU/L (15-46); BLOOD UREA NITROGEN 102 mg/dl (7-20); CALCIUM 9.1 mg/dl (8.4-10.2); CARBON DIOXIDE 23 mmol/L (21-31); CHLORIDE 100 mmol/L (97-110); CREATININE 12.62 mg/dl (0.61-1.24); Estimated GFR 4 mL/min (>60); GLUCOSE 110 mg/dl (70-220); MAGNESIUM 2.6 mg/dl (1.7-2.5); SODIUM 144 mmol/L (135-144); TOTAL PROTEIN 7.7 g/dl (6.1-8.1)
[2018-09-23 07:02] LABS: POTASSIUM 6.1 mmol/L (3.5-5.1)
[2018-09-23 08:06] LABS: HEMOGLOBIN A1C 7.1 % (0-5.9)
[2018-09-23] MEDS: FLUTICASONE 0.05% 16 GM NAS SPRAY NASAL ×2 (08:20→21:21)
[2018-09-23] MEDS: SEVELAMER CARBONATE 800 MG TABLET PO ×3 (08:21→17:22)
[2018-09-23] MEDS: SERTRALINE 50 MG TAB PO (08:21)
[2018-09-23] MEDS: FERROUS SULFATE (EC) 325 MG TAB PO (08:21)
[2018-09-23] MEDS: MULTIVIT/CA CARB/B CMPLX/FA TAB PO (08:21)
[2018-09-23] MEDS: ASPIRIN (EC) 81 MG TAB PO (08:22)
[2018-09-23 11:33] LABS: HEPATITIS B SURFACE ANTIGEN NEGATIVE (NEGATIVE)
[2018-09-23 19:41] LABS: CREATINE KINASE 71 IU/L (23-200)
[2018-09-23 19:54] LABS: CK INDEX 1.4; TROPONIN-I 0.048 ng/ml (0.000-0.120)
[2018-09-23] MEDS: traZODone 50 MG TAB PO (21:23)
[2018-09-23] MEDS: ATORVASTATIN 10 MG TAB PO (21:23)
[2018-09-24] MEDS: ACETAMINOPHEN 325 MG TAB PO (00:27)
[2018-09-24] MEDS: ALPRAZOLAM 0.25 MG TAB PO (00:27)
[2018-09-24 00:58] LABS: CREATINE KINASE 74 IU/L (23-200)
[2018-09-24 01:08] LABS: CK INDEX 0.9; CK-MB 0.68 ng/ml (0.0-2.4); TROPONIN-I 0.071 ng/ml (0.000-0.120)
[2018-09-24 05:42] LABS: ADD MAN DIFF? NO
[2018-09-24 05:44] LABS: WHITE BLOOD COUNT 6.9 10^3/ul (4.8-10.8)
[2018-09-24 05:44] LABS: BASOPHILS % 0.6 % (0.0-2.0); EOSINOPHILS # 0.2 10^3/ul (0.0-0.5); EOSINOPHILS % 3.1 % (0.0-7.0); HEMATOCRIT 29.3 % (42.0-52.0); HEMOGLOBIN 9.7 g/dl (14.0-18.0); LYMPHOCYTES # 1.4 10^3/ul (0.8-2.9); LYMPHOCYTES % 20.1 % (15.0-51.0); MEAN CORPUSCULAR HEMOGLOBIN 30.8 pg (29.0-33.0); MEAN CORPUSCULAR HGB CONC 33.1 g/dl (32.0-37.0); MEAN PLATELET VOLUME 9.9 fl (7.4-10.4); MONOCYTE # 0.8 10^3/ul (0.3-0.9); MONOCYTES % 11.3 % (0.0-11.0); NEUTROPHIL # 4.4 10^3/ul (1.6-7.5); NEUTROPHILS % 64.5 % (39.0-77.0); PLATELET COUNT 186 10^3/UL (140-415); RED BLOOD COUNT 3.15 10^6/ul (4.70-6.10); RED CELL DISTRIBUTION WIDTH 14.9 % (11.5-14.5)
[2018-09-24 06:23] LABS: ANION GAP 17 (5-13); BLOOD UREA NITROGEN 67 mg/dl (7-20); CALCIUM 8.5 mg/dl (8.4-10.2); CARBON DIOXIDE 32 mmol/L (21-31); CHLORIDE 91 mmol/L (97-110); CREATININE 9.21 mg/dl (0.61-1.24); Estimated GFR 6 mL/min (>60); GLUCOSE 108 mg/dl (70-220); MAGNESIUM 2.3 mg/dl (1.7-2.5); PHOSPHORUS 6.1 mg/dl (2.5-4.9); POTASSIUM 5.6 mmol/L (3.5-5.1); SODIUM 140 mmol/L (135-144)
[2018-09-24] MEDS: FLUTICASONE 0.05% 16 GM NAS SPRAY NASAL ×2 (08:14→20:46)
[2018-09-24] MEDS: MULTIVIT/CA CARB/B CMPLX/FA TAB PO (08:14)
[2018-09-24] MEDS: FERROUS SULFATE (EC) 325 MG TAB PO (08:14)
[2018-09-24] MEDS: ASPIRIN (EC) 81 MG TAB PO (08:15)
[2018-09-24] MEDS: SERTRALINE 50 MG TAB PO (08:15)
[2018-09-24] MEDS: SEVELAMER CARBONATE 800 MG TABLET PO ×3 (08:15→17:40)
[2018-09-24] MEDS ORDERED: GLUCAGON 1 MG INJ IM (12:00)
[2018-09-24] MEDS ORDERED: GLUCOSE GEL 15 GRAM TUBE BUCCAL (12:00)
[2018-09-24] MEDS: INSULIN ASPART [NOVOLOG] 3 ML PEN SC ×3 (12:00→20:51)
[2018-09-24] MEDS ORDERED: GLUCOSE GEL 15 GRAM TUBE PO ×2 (12:00)
[2018-09-24] MEDS ORDERED: DEXTROSE 50% 50 ML SYRINGE IV ×2 (12:00)
[2018-09-24] MEDS: BISACODYL (EC) 5 MG TAB PO (17:40)
[2018-09-24] MEDS: PEG/ELECTROLYTES 4L BTL PO (18:23)
[2018-09-24] MEDS: traZODone 50 MG TAB PO (20:47)
[2018-09-24] MEDS: ATORVASTATIN 10 MG TAB PO (20:47)
[2018-09-25] MEDS: ACCU-CHEK XX (02:28)
[2018-09-25] MEDS: BISACODYL (EC) 5 MG TAB PO (04:58)
[2018-09-25] MEDS: PEG/ELECTROLYTES 4L BTL PO (04:59)
[2018-09-25 05:59] LABS: ADD MAN DIFF? NO
[2018-09-25 06:13] LABS: WHITE BLOOD COUNT 7.2 10^3/ul (4.8-10.8)
[2018-09-25 06:13] LABS: BASOPHIL # 0.1 10^3/ul (0.0-0.1); BASOPHILS % 0.8 % (0.0-2.0); EOSINOPHILS # 0.3 10^3/ul (0.0-0.5); EOSINOPHILS % 3.8 % (0.0-7.0); HEMATOCRIT 31.2 % (42.0-52.0); HEMOGLOBIN 10.3 g/dl (14.0-18.0); LYMPHOCYTES # 1.3 10^3/ul (0.8-2.9); LYMPHOCYTES % 17.9 % (15.0-51.0); MEAN CORPUSCULAR HEMOGLOBIN 30.5 pg (29.0-33.0); MEAN CORPUSCULAR VOLUME 92.3 fl (82.0-101.0); MONOCYTE # 1.2 10^3/ul (0.3-0.9); MONOCYTES % 16.3 % (0.0-11.0); NEUTROPHIL # 4.4 10^3/ul (1.6-7.5); NEUTROPHILS % 60.8 % (39.0-77.0); PLATELET COUNT 204 10^3/UL (140-415); RED BLOOD COUNT 3.38 10^6/ul (4.70-6.10); RED CELL DISTRIBUTION WIDTH 14.4 % (11.5-14.5)
[2018-09-25 06:30] LABS: ANION GAP 17 (5-13); BLOOD UREA NITROGEN 39 mg/dl (7-20); CALCIUM 9.2 mg/dl (8.4-10.2); CARBON DIOXIDE 29 mmol/L (21-31); CHLORIDE 91 mmol/L (97-110); CREATININE 6.48 mg/dl (0.61-1.24); Estimated GFR 9 mL/min (>60); GLUCOSE 103 mg/dl (70-220); MAGNESIUM 2.1 mg/dl (1.7-2.5); POTASSIUM 5.1 mmol/L (3.5-5.1); SODIUM 137 mmol/L (135-144)
[2018-09-25] MEDS: INSULIN ASPART [NOVOLOG] 3 ML PEN SC ×3 (07:54→17:25)
[2018-09-25] MEDS: SEVELAMER CARBONATE 800 MG TABLET PO ×3 (07:55→17:10)
[2018-09-25] MEDS: FLUTICASONE 0.05% 16 GM NAS SPRAY NASAL (08:25)
[2018-09-25] MEDS: SERTRALINE 50 MG TAB PO (08:26)
[2018-09-25] MEDS: ASPIRIN (EC) 81 MG TAB PO (08:26)
[2018-09-25] MEDS: PSYLLIUM 28% PACKET PO (08:26)
[2018-09-25] MEDS: MULTIVIT/CA CARB/B CMPLX/FA TAB PO (08:26)
[2018-09-25] MEDS: FERROUS SULFATE (EC) 325 MG TAB PO (08:26)
[2018-09-25] MEDS ORDERED: EPHEDrine SULFATE 50 MG/5 ML SYG IV (13:30)
[2018-09-25] MEDS ORDERED: LABETALOL HCL 20MG INJ IV (13:30)
[2018-09-25] MEDS ORDERED: HYDROmorphONE 1 MG/5 ML IV SYRINGE IV ×3 (13:30)
[2018-09-25] MEDS ORDERED: ONDANSETRON 4 MG INJ IV (13:30)
[2018-09-25] MEDS ORDERED: METOCLOPRAMIDE 10 MG INJ IV (13:30)
[2018-09-25] MEDS ORDERED: FENTAnyl 50 MCG/ML VIAL IV ×3 (13:30)
[2018-09-25] MEDS ORDERED: hydrALAzine 20 MG INJ IV (13:30)
[2018-09-25] MEDS: PROPOFOL 40 ML (14:02)
[2018-09-25] MEDS: EPOETIN 10000 UNITS/1 ML INJ (ESRD) SC (17:11)
[2018-09-25] MEDS ORDERED: MESALAMINE 1000 MG SUPP PR (21:00)
== END 2018-09-25 18:17 | disposition home or self-care (01) | DRG 682 ==
LOC: E/R 16:42 → 6WM 20:30
PROC: 0DBP8ZX Excision of Rectum, Via Natural or Artificial Opening Endoscopic, Diagnostic (ICD-10-PCS; principal; 2018-09-25 12:30)
PROC: 5A1D70Z Performance of Urinary Filtration, Intermittent, Less than 6 Hours Per Day (ICD-10-PCS; 2018-09-25 12:30)
DX: I13.11 Hypertensive heart and chronic kidney disease without heart failure, with stage 5 chronic kidney disease, or end stage renal disease (principal); N18.6 End stage renal disease; E87.5 Hyperkalemia; I12.0 Hypertensive chronic kidney disease with stage 5 chronic kidney disease or end stage renal disease; E11.22 Type 2 diabetes mellitus with diabetic chronic kidney disease; Z99.2 Dependence on renal dialysis; K64.8 Other hemorrhoids; K62.7 Radiation proctitis; Z86.73 Personal history of transient ischemic attack (TIA), and cerebral infarction without residual deficits; Z95.1 Presence of aortocoronary bypass graft; E78.5 Hyperlipidemia, unspecified; K74.69 Other cirrhosis of liver; B19.20 Unspecified viral hepatitis C without hepatic coma; D63.1 Anemia in chronic kidney disease; N28.89 Other specified disorders of kidney and ureter; Z85.46 Personal history of malignant neoplasm of prostate; R19.7 Diarrhea, unspecified; R00.1 Bradycardia, unspecified; I44.1 Atrioventricular block, second degree; K62.89 Other specified diseases of anus and rectum
CPT/HCPCS: 36415; 71045; 80048; 80053; 82550; 82553; 82962; 83036; 83690; 83735; 84100; 84484; 85025; 87040; 87081; 87340; 88305; 90935; 93005; 94644; 94660; 96374; 96375; 99285-25